=== PATIENT | female | born 1940 ===

== ENCOUNTER 2017-08-08 10:00 | Emergency (ER) | payer MEDICARE, OTHER ==
--- NOTE | 2017-08-08 11:17 | C.PDOC ---
History Of Present Illness 77 y/o female with history of HTN presents to ED for evaluation on persistent high blood pressure for 1 week. Patient reports 140/70 is normal blood pressure and is on Atenolol and Losartan. Patient states she saw PMD for same symptoms and had a dosage increase of 10 for 2 days with no improvement which prompted visit to ED. Patient reports blood pressure 191/80 this morning and denies headache, chest pain, sob, nausea, vomiting, weakness or any other complaints at this time. Time Seen by Provider: 08/08/17 10:51 Chief Complaint (Nursing): High Blood Pressure History Per: Patient History/Exam Limitations: no limitations Onset/Duration Of Symptoms: Days Current Symptoms Are (Timing): Still Present Past Medical History Reviewed: Historical Data, Nursing Documentation, Vital Signs Vital Signs: Last Vital Signs Temp 97.6 F 08/08/17 10:17 Pulse 55 L 08/08/17 12:07 Resp 18 08/08/17 12:07 BP 167/71 H 08/08/17 12:07 Pulse Ox 93 L 08/08/17 12:07 - Medical History PMH: HTN, Hyperthyroidism Surgical History: No Surg Hx Family History: States: No Known Family Hx - Social History Hx Alcohol Use: No Hx Substance Use: No - Immunization History Hx Tetanus Toxoid Vaccination: No Hx Influenza Vaccination: Yes Hx Pneumococcal Vaccination: No Review Of Systems Constitutional: Negative for: Fever, Chills Cardiovascular: Negative for: Chest Pain Gastrointestinal: Negative for: Nausea, Vomiting Skin: Negative for: Rash Neurological: Negative for: Weakness, Numbness, Headache Physical Exam - Physical Exam Appears: Non-toxic, No Acute Distress Skin: Warm, Dry, No Rash Head: Atraumatic, Normacephalic Eye(s): bilateral: Normal Inspection Oral Mucosa: Moist Neck: Normal ROM, Supple Cardiovascular: Rhythm Regular Respiratory: Normal Breath Sounds, No Rales, No Rhonchi, No Wheezing Gastrointestinal/Abdominal: Soft, No Tenderness, No Guarding, No Rebound Extremity: Normal ROM, Capillary Refill (<2 seconds) Neurological/Psych: Oriented x3 ED Course And Treatment O2 Sat by Pulse Oximetry: 97 (RA) Pulse Ox Interpretation: Normal Reevaluation Time: 12:33 Reassessment Condition: Improved (CURRENTLY ON VALSARTAN/HCTZ 160/25, WILL INCR DOSE. ADVISED FU PMD) Disposition Counseled Patient/Family Regarding: Diagnosis, Need For Followup - Disposition Referrals: Maria R Gaitan MD [Staff Provider] - Disposition: HOME/ ROUTINE Disposition Time: 12:36 Condition: IMPROVED Prescriptions: Valsartan/Hydrochlorothiazide [Valsartan and Hydrochlorothiazide 12.5 mg-320] 1 tab PO DAILY #15 tab Instructions: High Blood Pressure in Adults Forms: [facility] (Albanian) Print Language: ARMENIAN - Clinical Impression Clinical Impression: Hypertension - Scribe Statement The provider has reviewed the documentation as recorded by the Scriblazaro Herr All medical record entries made by the Ameliaiblazaro were at my direction and personally dictated by me. I have reviewed the chart and agree that the record accurately reflects my personal performance of the history, physical exam, medical decision making, and the department course for this patient. I have also personally directed, reviewed, and agree with the discharge instructions and disposition.
[2017-08-08 12:37] VITALS: BP 126/61; PULSE 60; RESP 17
[2017-08-08 12:38] VITALS: O2SAT 97
[2017-08-08 12:50] VITALS: TEMP 97.8
== END 2017-08-08 12:50 | disposition home or self-care (01) ==
LOC: C.ER 10:00
DX: I10 Essential (primary) hypertension (principal)
CPT/HCPCS: 96374; 99285; J0360

== ENCOUNTER 2018-06-04 08:47 | Emergency (ER) | payer MEDICARE, OTHER ==
[2018-06-04 08:56] VITALS: BP 122/76; PULSE 62; TEMP 97.4; O2SAT 96
[2018-06-04] MEDS ORDERED: Silver Sulfadiazine 1% Cream (20 gm) TOP STA (09:10)
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
[2018-06-04] MEDS ORDERED: Silver Sulfadiazine 1% Cream (20 gm) ONE (09:15)
[2018-06-04 09:40] VITALS: RESP 18
== END 2018-06-04 09:34 | disposition home or self-care (01) ==
LOC: C.ER 08:47
DX: T25.029A Burn of unspecified degree of unspecified foot, initial encounter (principal); X12.XXXA Contact with other hot fluids, initial encounter

== ENCOUNTER 2018-07-15 08:09 | Outpatient (CLI) | payer MEDICARE, OTHER | END 2018-07-15 08:10 | disposition home or self-care (01) | LOC: C.MAMMO 08:10 ==